=== PATIENT | female | born 1985 | race Caucasian/White ===

== ENCOUNTER 2016-05-15 15:38 | Emergency (ER) | payer BC ==
[2016-05-15] MEDS ORDERED: Pantoprazole Inj 40 MG in Normal Saline Flush 10 ML IVP ONE (15:57)
[2016-05-15] MEDS ORDERED: ONDANSETRON 4 MG/2 ML VIAL IVP ONE (15:57)
[2016-05-15] MEDS ORDERED: Sodium Chloride 0.9% 1,000 ML PRIMARY IV ONE (15:57)
[2016-05-15] MEDS ORDERED: NORMAL SALINE 10 ML SYRINGE FLUSH IVP PRN (15:57)
[2016-05-15 16:07] VITALS: RESP 18; TEMP 96.7
[2016-05-15] MEDS ORDERED: Sodium Chloride 0.9% 1,000 ML ONE (16:11)
[2016-05-15] MEDS ORDERED: PANTOPRAZOLE IV 40 MG VIAL ONE (16:11)
[2016-05-15] MEDS ORDERED: ONDANSETRON 4 MG/2 ML VIAL ONE (16:11)
[2016-05-15 16:18] LABS: HEMOGLOBIN 16.9 g/dL (12.0-16.0); IMM GRAN % (AUTO) 0.1 % (0-5); IMM GRAN# (AUTO) 0.01 10*3/UL; LYMPHOCYTES % (AUTO) 22.8 % (10-50)
[2016-05-15 16:21] LABS: BASOPHILS # (AUTO) 0.03 10*3/UL; BASOPHILS % (AUTO) 0.4 % (0-1); EOSINOPHILS % (AUTO) 1.7 % (0-8); HEMATOCRIT 45.6 % (37.0-47.0); LYMPHOCYTES # (AUTO) 1.62 10*3/uL; MEAN CORPUSCULAR HEMOGLOBIN 33.9 PG (27-31); MEAN CORPUSCULAR HGB CONC 37.1 g/dL (33-37); MEAN PLATELET VOLUME 10.5 FL (7.4-12.2); MONOCYTES # (AUTO) 0.32 10*3/UL (0.3-0.8); MONOCYTES % (AUTO) 4.5 % (5-15); NEUTROPHILS # (AUTO) 4.99 10*3/UL; NEUTROPHILS % (AUTO) 70.5 % (50-80); RDW COEFFICIENT OF VARIATION 13.4 % (11.5-14.5); RED BLOOD COUNT 4.98 10^6/uL (4.20-5.40); WHITE BLOOD COUNT 7.09 10^3/uL (4.8-10.8)
[2016-05-15 16:23] LABS: PLATELET MORPHOLOGY COMMENT NORMAL MORPHOLOGY (NORM)
[2016-05-15 16:25] LABS: AMYLASE 72 U/L (30-110); ASPARTATE AMINO TRANSFERASE 27 IU/L (8-39); BLOOD UREA NITROGEN 11 mg/dL (7-22); BUN/CREATININE RATIO 13.75 (6-20); CALCIUM 9.5 mg/dL (8.7-10.7); CHLORIDE 103 meq/L (98-112); CREATININE 0.8 mg/dL (0.50-1.20); EST GLOMERULAR FILTRATION > 60 (>60 ml/min/1.73m(2)); GLUCOSE 99 mg/dL (78-110); POTASSIUM 4.2 meq/L (3.8-5.2); SODIUM 140 meq/L (135-145); TOTAL PROTEIN 7.8 g/dL (6.1-8.0)
--- NOTE | 2016-05-15 18:17 | DI ---
HISTORY: Intermittent upper abdominal pain for 1 day. COMPARISON: None available. TECHNIQUE: CT images were obtained through the abdomen and pelvis with contrast. FINDINGS: There is no free air nor free fluid. There is no lymphadenopathy. The lung bases are clear. The skeletal structures are unremarkable. There is a complex left ovarian cyst which is not well evaluated, and is within normal limits. IMPRESSION: 1. No acute intra-abdominal pathology to explain intermittent upper abdominal pain.
[2016-05-15 18:34] LABS: BILIRUBIN,URINE NEGATIVE (NEG); CLARITY,URINE CLEAR (CLEAR); GLUCOSE, URINE (UA) NEGATIVE (NEG); LEUKOCYTE ESTERASE ,URINE NEGATIVE (NEG); NITRATE,URINE NEGATIVE (NEG); OCCULT BLOOD,URINE Trace-intact (NEG); PROTEIN,URINE NEGATIVE (NEG); UROBILINOGEN,URINE 0.2 EU/dL (0.2)
[2016-05-15 18:42] LABS: RBC,URINE 0 /hpf; SQUAMOUS EPITHELIAL CELL,UR FEW; URINE SAMPLE TYPE CLEAN CATCH URINE; WBC,URINE 0
--- NOTE | 2016-05-15 23:39 | PDOC ---
Abdomen/Flank HPI - General Chief Complaint: Nausea / Vomiting / Diarrhea Stated Complaint: ABDOMINAL PAIN Date Seen by Provider: 05/15/16 Time Seen by Provider: 15:45 Source: POSITIVE: Patient, Spouse Exam Limitations: POSITIVE: No limitations Nurse's Notes Reviewed & Considered: Yes - History of Present Illness Initial Comments: The patient is a 30 year old female. Around 10 PM last evening she developed some vague upper abdominal discomfort, which she states has been intermittent. She also had one episode of vomiting and some diarrhea. She states her appetite has been less than normal but she did eat some toast about an hour [employer]. Last menstrual period was 18 April. She is 3 para 3 abortus 0. No surgical history. No fevers or chills. No melena, hematochezia, hematemesis , dysuria or hematuria. Body Location Affected: REPORTS: Abdomen Timing: REPORTS: Gradual, Intermittent Duration: <24 hours (Approximately 17 hours) Severity: Moderate Quality: REPORTS: Cramping, "Pain" Abdominal Pain Onset Location: REPORTS: RLQ, LLQ, Epigastric, Periumbilical Abdominal Pain Radiation: REPORTS: No radiation Context: REPORTS: None Modifying Factors: improves with: Nothing Associated Symptoms: REPORTS: Denies symptoms, Nausea Similar Symptoms Previously: No Recent Care Received: REPORTS: Denies Any Prior Injuries Related to Current Complaint?: No - Patient Home Medications Home Medications: Home Medications Vit/Fe Fumarate/FA [ Tablet] 1 each PO DAILY 03/07/14 Mupirocin Calcium [Bactroban] 1 applic TOPICAL QID PRN #1 tube 03/14/16 Triamcinolone Acetonide 15 gm TOPICAL QID PRN #1 tube 03/14/16 - Patient Allergies Allergies/Adverse Reactions: Allergies Allergy/AdvReac Type Severity Reaction Status Date / Time No Known Allergies Allergy Verified 05/15/16 15:46 Past Medical History - heen HEENT History: Denies History Cardiovascular History: Denies History Respiratory History: Denies History Gastrointestinal History: Denies History Genitourinary History: Denies History Endocrine History: Denies History Musculoskeletal History: Denies History Prosthesis or Implant: No Neurological History: Denies History Blood Disorders: Denies History Psychiatric History: Denies History History of Sexually Transmitted Diseases: No LMP: 04/18/16 Cancer History: Denies History In Past Year Been Physically Harmed or Verbally Threatened: No History of MDRO: No History of Other Communicable Diseases: No Tobacco Use: Never Smoker Alcohol Use: None Substance Use Type: None Previous Surgical History: Yes Type / Date of Surgery: WISDOM TEETH Anesthesia Reactions: Yes (vomiting with anesthesia) Malignant Hyperthermia: No Significant Family History: No pertinent family hx Past Medical History Reviewed: Reviewed - No Changes ROS - Limitations ROS Limitations: No Limitations Constitution: REPORTS: Denies Symptoms Cardiovascular: REPORTS: Denies Cardiac Symptoms Respiratory: REPORTS: Denies Resp Symptoms Neurological: REPORTS: Denies Neuro Symptoms Gastrointestinal: REPORTS: Abdominal Pain, Nausea, Vomitting (Times one), Diarrhea (A few loose bowel movements). DENIES: Black Stools, Bloody Stools, Constipation Endocrine: REPORTS: Denies Symptoms Musculoskeletal: REPORTS: Denies MS Symptoms Genitourinary: REPORTS: Denies Symptoms Eyes: REPORTS: Denies Symptoms ENT: REPORTS: Denies Symptoms Skin: REPORTS: Denies Skin Symptoms Lympathic: REPORTS: Denies Lympathic Symptoms Immunologic: POSITIVE: Denies Symptoms Psychiatric: POSITIVE: Denies Psych Symptoms Abdominal/Flank Pain PE - General Appearance General Appearance: POSITIVE: Alert, Cooperative, No Acute Distress, No Evidence of Trauma - HEENT HEENT: POSITIVE: Head Inspection Nml, Eyes Inspection Nml, Ears Inspection Nml, Nose Inspection Nml, Oral/Dental Inspect. Nml, Pharynx Inspect. Nml, PERRL, EOMI - Neck Neck: POSITIVE: Normal Inspection, No Apparent Injury - Respiratory Respiratory: POSITIVE: No Respiratory Distress, Breath Sounds Normal, Chest Non- Tender - Cardiovascular Cardiovascular: POSITIVE: Regular Rate and Rhythm, Heart Sounds Normal, Equal Pulses, Strong Pulses Peripheral Pulses: Radial (R): 2+, Radial (L): 2+ - Chest Chest: POSITIVE: Non Tender - Abdomen Abdomen: Soft: (All Quadrants), Normal Bowel Sounds: (All Quadrants), Denies Tenderness: (LLQ), (RLQ), No Splenomegaly: (All Quadrants), No Hepatomegaly: ( All Quadrants), No Guarding: (All Quadrants), No Rebound: (All Quadrants), No Palpable Pulse: (All Quadrants), No Palpabale Mass: (All Quadrants), No Distention: (All Quadrants), No Rigidity: (All Quadrants), Tenderness Noted: ( RUQ), (LUQ) (mild) Additional Abdominal Details: Abdominal examination shows bowel sounds to be active. Patient does express some mild discomfort on firm deep direct palpation in the upper abdomen, without masses or organomegaly or rebound. - Back Back: POSITIVE: Normal Inspection. 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 Lab Results Reviewed: Yes Lab Results:: Laboratory Results 05/15/16 05/15/16 Range/Units 16:09 17:30 WBC 7.09 (4.8-10.8) 10^3/uL RBC 4.98 (4.20-5.40) 10^6/uL Hgb 16.9 H (12.0-16.0) g/dL Hct 45.6 (37.0-47.0) % MCV 91.6 (81-99) FL MCH 33.9 H (27-31) PG MCHC 37.1 H (33-37) g/dL RDW Std Deviation 44.5 (39-50) fL RDW Coeff of [place] 13.4 (11.5-14.5) % Plt Count 239 (140-350) 10*3/uL MPV 10.5 (7.4-12.2) FL Immature Gran % (Auto) 0.1 (0-5) % Neut % (Auto) 70.5 (50-80) % Lymph % (Auto) 22.8 (10-50) % [place] % (Auto) 4.5 L (5-15) % Eos % (Auto) 1.7 (0-8) % Baso % (Auto) 0.4 (0-1) % Immature Gran # (Auto) 0.01 10*3/UL Neut # (Auto) 4.99 10*3/UL Lymph # (Auto) 1.62 10*3/uL [place] # (Auto) 0.32 (0.3-0.8) 10*3/UL Eos # (Auto) 0.12 10*3/UL Baso # (Auto) 0.03 10*3/UL WBC Morphology Comment Normal morphology (NORM) Plt Morphology Comment Normal morphology (NORM) RBC Morph Comment Normal morphology (NORM) Sodium 140 (135-145) meq/L Potassium 4.2 (3.8-5.2) meq/L Chloride 103 (98-112) meq/L Carbon Dioxide 24 (23-33) meq/L Anion Gap 13 (5-20) BUN 11 (7-22) mg/dL Creatinine 0.8 (0.50-1.20) mg/dL Estimated GFR > 60 (>60 ml/min/1.73m(2)) BUN/Creatinine Ratio 13.75 (6-20) Glucose 99 (78-110) mg/dL Calculated Osmolality 288.0 (267-292) mOsm/kg Calcium 9.5 (8.7-10.7) mg/dL Total Bilirubin 2.0 H (0.3-1.2) mg/dL AST 27 (8-39) IU/L ALT 29 (9-52) IU/L Alkaline Phosphatase 62 (38-126) IU/L Total Protein 7.8 (6.1-8.0) g/dL Albumin 4.8 (3.5-4.8) g/dL Globulin 3.0 (2.50-4.10) g/dL Albumin/Globulin Ratio 1.60 (1.3-2.0) mg/g Amylase 72 (30-110) U/L Lipase 107 (23-300) IU/L Serum HCG, Qual Negative Ur Collection Type Clean catch urine Urine Color Yellow Urine Clarity Clear (CLEAR) Urine pH 5.0 (5.0-8.5) Ur Specific [place] >1.050 (1.005-1.030) Urine Protein Negative (NEG) mg/dl Urine Glucose (UA) Negative (NEG) mg/dL Urine Ketones 15 (NEG) Urine Occult Blood Trace-intact H (NEG) Urine Nitrate Negative (NEG) Urine Bilirubin Negative (NEG) Urine Urobilinogen 0.2 (0.2) EU/dL Ur Leukocyte Esterase Negative (NEG) Urine RBC 0 (NONE) /hpf Urine WBC 0 (NONE) Ur Squamous Epith Cells Few (NONE) Ur Renal Epithelial Cell None (NONE) Urine Crystals None Urine Bacteria None (NONE) Urine Casts None (NONE) Urine Mucus None (NONE) Urine Trichomonas None (NONE) Urine Yeast None (NONE) Ur Culture Indicated? Culture not set - Patient's Progress Pain Medication Addressed: POSITIVE: No School/Work Release Addressed: POSITIVE: Not Applicable Re-examine Time: 18:20 Re-Examine Comment: Patient states he feels much better on discharge and states she is hungry. Reexamine of abdomen shows abdomen to be completely soft and nontender. Status: POSITIVE: Improved, Re-Examined - Consult Counseled: POSITIVE: Patient, Family, RE: Lab Results, RE: Radiology Results, RE : DX, RE: Need for F/U Patient Care Time - Estimated PCT Patient Care Time (In Minutes): 40 Vital Signs - Recent Vital Signs Vital Signs: Vital Signs (Last 8 hours) Temp Pulse Resp BP Pulse Ox 05/15/16 15:48 96.7 F L 82 18 117/80 94 - VS Reviewed Vital Signs Reviewed: Yes Discharge Clinical Impression: Abdominal pain Discharge Disposition: Discharged to Home Condition: Good Patient Instructions Given at Discharge: Acute Abdominal Pain (ED) Additional Instructions: You are feeling better. Your blood tests and CT scan are normal. I see no serious source of your abdominal discomfort. There was no gallstones seen on your CT scan; however, if symptoms persist you should probably have a right upper quadrant abdominal ultrasound. Clear liquid diet for 24 hours. Return here anytime if condition worsens in any way whatsoever. Follow-up with your primary care provider. Follow Up With: JACI FELICIANO [Primary Care Provider] - (Instructions as above. Follow-up with your primary care provider. Return here anytime if condition worsens in any way.)
== END 2016-05-15 18:55 | disposition home or self-care (01) ==
LOC: ER 15:38
DX: R10.13 Epigastric pain (principal); R11.2 Nausea with vomiting, unspecified; R19.7 Diarrhea, unspecified
CPT/HCPCS: 74177; 80053; 81001; 81003; 82150; 83690; 84703; 85025; 96361; 96374; 96375; 99283; J2405; J3490; J7030

== ENCOUNTER → 2016-05-23 | Outpatient (CLI) | payer BC ==
[2016-05-23 12:22] LABS: MEAN PLATELET VOLUME 10.8 FL (7.4-12.2)
[2016-05-23 12:25] LABS: HEMATOCRIT 42.4 % (37.0-47.0); HEMOGLOBIN 15.7 g/dL (12.0-16.0); MEAN CORPUSCULAR HEMOGLOBIN 34.1 PG (27-31); RDW COEFFICIENT OF VARIATION 13.3 % (11.5-14.5); RED BLOOD COUNT 4.61 10^6/uL (4.20-5.40); WHITE BLOOD COUNT 5.62 10^3/uL (4.8-10.8)
[2016-05-23 12:38] LABS: ASPARTATE AMINO TRANSFERASE 24 IU/L (8-39); BILIRUBIN,TOTAL 1.3 mg/dL (0.3-1.2); BLOOD UREA NITROGEN 11 mg/dL (7-22); BUN/CREATININE RATIO 13.75 (6-20); CALCIUM 9.7 mg/dL (8.7-10.7); CHLORIDE 103 meq/L (98-112); CREATININE 0.8 mg/dL (0.50-1.20); EST GLOMERULAR FILTRATION > 60 (>60 ml/min/1.73m(2)); GLUCOSE 87 mg/dL (78-110); POTASSIUM 4.9 meq/L (3.8-5.2); SODIUM 139 meq/L (135-145); TOTAL PROTEIN 7.3 g/dL (6.1-8.0)
[2016-05-23 12:45] LABS: PLATELET MORPHOLOGY COMMENT NORMAL MORPHOLOGY (NORM)
[2016-05-23 12:46] LABS: BAND NEUTROPHILS % 0 % (0-10); BASOPHILS % (MANUAL) 1 % (0-1); EOSINOPHILS % (MANUAL) 3 % (0-8); LYMPHOCYTES % (MANUAL) 39 % (10-50); MONOCYTES % (MANUAL) 6 % (0-12); NEUTROPHILS % (MANUAL) 51 % (50-80)
[2016-05-23 12:55] LABS: FREE T4 (FREE THYROXINE) 0.83 ng/dL (0.93-1.71)
== END ==
LOC: MOB LAB 11:16
PROVIDERS: ATTEND Family Medicine
DX: R10.84 Generalized abdominal pain (principal); E03.9 Hypothyroidism, unspecified
CPT/HCPCS: 36415; 80053; 84439; 84443; 85007

== ENCOUNTER → 2016-05-25 | Outpatient (CLI) | payer BC ==
--- NOTE | 2016-05-25 09:42 | DI ---
US ABDOMEN LIMITED,05/25/2016 7:56 AM: Clinical History: Abdominal pain. Previous Exam: CT abdomen pelvis performed May 15, 2016 Findings: Multiple grayscale and color Doppler sonographic images are obtained through the right upper quadrant , and demonstrate normal-appearing parenchyma of the liver. The pancreas is not well seen, but is grossly normal. The gallbladder was normal with the gallbladder wall measuring 2 mm. There were no stones. The common bile duct measured 4 mm. The right kidney measured 12.0 cm in length without hydronephrosi s nor nephrolithiasis. The renal cortex measuring normal thickness. Impression: Normal right upper quadrant ultrasound.
== END ==
LOC: US 07:51
PROVIDERS: ATTEND Nurse Practitioner Family
DX: R10.84 Generalized abdominal pain (principal)
CPT/HCPCS: 76705

== ENCOUNTER → 2016-08-23 | Outpatient (CLI) | payer BC ==
[2016-08-24 14:47] LABS: FREE T4 (FREE THYROXINE) 1.09 ng/dL (0.93-1.71)
== END ==
LOC: LAB 07:12
PROVIDERS: ATTEND Family Medicine
DX: E03.9 Hypothyroidism, unspecified (principal)
CPT/HCPCS: 36415; 84439; 84443